=== PATIENT | female | born 1955 | race Caucasian/White ===

== ENCOUNTER 2016-07-10 07:50 | Emergency (ER) | payer BC ==
[2016-07-10 08:16] VITALS: BP 121/60
--- NOTE | 2016-07-10 08:24 | UC ---
Skin Complaint HPI - HPI Summary HPI Summary: tick removed from left side of neck this AM may have been on for 1 1/2 days - History of Current Complaint Chief Complaint: UCSkin Stated Complaint: TICK BITE Hx Obtained From: Patient Hx Last Menstrual Period: 10 yrs Skin Exposure Onset/Duration: Days Ago Timing: Constant Onset Severity: Mild Current Severity: Mild Pain Intensity: 2 Pain Scale Used: 0-10 Numeric Aggravating: Touch Alleviating: Nothing Associated Signs & Symptoms: Positive: Tenderness Related History: Insect Bite/Sting - Allergy/Home Medications Allergies/Adverse Reactions: Allergies Allergy/AdvReac Type Severity Reaction Status Date / Time No Known Allergies Allergy Verified 07/10/16 08:16 Review of Systems Constitutional: Negative Skin: Negative Eyes: Negative ENT: Negative Respiratory: Negative Cardiovascular: Negative Gastrointestinal: Negative Genitourinary: Negative Motor: Negative Neurovascular: Negative Musculoskeletal: Negative Neurological: Negative Psychological: Negative All Other Systems Reviewed And Are Negative: Yes PMH/Surg Hx/FS Hx/Imm Hx Previously Healthy: Yes Endocrine History Of: Denies: Diabetes, Thyroid Disease Cardiovascular History Of: Denies: Cardiac Disorders, Hypertension, Pacemaker/ICD Respiratory History Of: Denies: COPD, Asthma GI/ History Of: Denies: Ulcer - Surgical History Surgical History: Yes Surgery Procedure, Year, and Place: 3 c-sections. left thumb surgery/re- attachment 40 years ago - Family History Known Family History: Positive: Hypertension, Diabetes - Social History Alcohol Use: Rare Substance Use Type: None Smoking Status (MU): Light Every Day Tobacco Smoker Type: Cigarettes Amount Used/How Often: 4-6 CIGS PER DAY Length of Time of Smoking/Using Tobacco: 30 YRS Have You Smoked in the Last Year: Yes Physical Exam Triage Information Reviewed: Yes Appearance: Well-Appearing, No Pain Distress, Well-Nourished Vital Signs: Initial Vital Signs Temp 98.4 F 07/10/16 08:09 Pulse 77 07/10/16 08:09 Resp 20 07/10/16 08:09 BP 121/60 07/10/16 08:09 Vital Signs Reviewed: Yes Eyes: Positive: Conjunctiva Clear ENT: Positive: Hearing grossly normal, TMs normal. Negative: Nasal congestion, Nasal drainage, Trismus, Muffled/hoarse voice Neck: Positive: Supple, Nontender, No Lymphadenopathy Respiratory: Positive: Lungs clear, Normal breath sounds, No respiratory distress Cardiovascular: Positive: RRR, No Murmur Musculoskeletal: Positive: ROM Intact, No Edema Neurological: Positive: Alert Psychological Exam: Normal Skin Exam: Other - mild erthyema at tick bite site/ mandibular mouth parts removed with splinter forceps Course/Dx - Diagnoses Provider Diagnoses: tick bite. lyme disease prophylaxis Discharge - Discharge Plan Condition: Stable Disposition: HOME Prescriptions: DOXYcycline CAP(*) [DOXYcycline 100MG CAP(*)] 100 mg PO BID #2 cap Patient Education Materials: Tick Bite (ED) Referrals: Franco Sen DO [Primary Care Provider] - If Needed Additional Instructions: call for any questions return for any problems take two doxycylcine with food this am
== END 2016-07-10 08:56 | disposition home or self-care (01) ==
LOC: UCCORT 07:50
DX: S10.96XA Insect bite of unspecified part of neck, initial encounter (principal); W57.XXXA Bitten or stung by nonvenomous insect and other nonvenomous arthropods, initial encounter
CPT/HCPCS: 99212; G0463

== ENCOUNTER 2017-01-06 15:52 | Emergency (ER) | payer BC ==
--- NOTE | 2017-01-06 16:55 | UC ---
Ear Complaint HPI - HPI Summary HPI Summary: 61 y/o female presents to the urgent care c/o RT ear pain and plugged ear for the past 2 days. Pt reports nasal congestion, mild NAVA and sinus pain with clear nasal discharge for 1 week. Ear pain is mild 2/10 mostly pressure. Pt denies fever, SOB, chest pain, N/V/D, dizziness. - History of Current Complaint Chief Complaint: UCEar Stated Complaint: RT EAT ACHE Time Seen by Provider: 01/06/17 16:53 Hx Obtained From: Patient Hx Last Menstrual Period: 10 yrs ?: No Onset/Duration: Gradual Onset, Lasting Days - 2 days, Still Present Severity Initially: Mild Severity Currently: Mild Pain Intensity: 2 Pain Scale Used: 0-10 Numeric Aggravating Factors: Other - nasal congestion Alleviating Factors: OTC Meds Associated Signs/Symptoms: Positive: URI Symptoms Related History: Seasonal Allergies - Allergies/Home Medications Allergies/Adverse Reactions: Allergies Allergy/AdvReac Type Severity Reaction Status Date / Time No Known Allergies Allergy Verified 01/06/17 16:53 PMH/Surg Hx/FS Hx/Imm Hx Previously Healthy: Yes Endocrine History: Dyslipidemia Cardiovascular History: Hypertension - Surgical History Surgical History: Yes Surgery Procedure, Year, and Place: 3 c-sections. left thumb surgery/re- attachment 40 years ago - Family History Known Family History: Positive: Cardiac Disease, Hypertension, Diabetes - Social History Occupation: Employed Full-time Lives: With Family Alcohol Use: Rare Substance Use Type: None Smoking Status (MU): Light Every Day Tobacco Smoker Type: Cigarettes Amount Used/How Often: 4-6 CIGS PER DAY Length of Time of Smoking/Using Tobacco: 30 YRS Have You Smoked in the Last Year: Yes Review of Systems Constitutional: Negative Skin: Negative Eyes: Negative ENT: Ear Ache - RT pressure, Nasal Discharge, Sinus Congestion, Sinus Pain/ Tenderness - mild Respiratory: Negative Cardiovascular: Negative Gastrointestinal: Negative Genitourinary: Negative Motor: Negative Neurovascular: Negative Musculoskeletal: Negative Neurological: Negative Psychological: Negative Is Patient Immunocompromised?: No All Other Systems Reviewed And Are Negative: Yes Physical Exam Triage Information Reviewed: Yes - Additional Comments Vitals: reviewed General: Well developed, well-nourished female patient with NAD. Head and face: Normocephalic and atraumatic, Positive tenderness over the frontal and maxillary sinuses.. Eyes: PERRLA, EOMI x 2. Normal conjunctiva. No eye discharge. ENT: B/L external ear canals with mild cerumen and TM with normal limits. positive light reflex Nose: with clear nasal discharge and erythematous mucosa. Pharynx with mild erythema, no exudate. Neck: Supple, no JVD, no carotid bruits and no lymphadenopathy. Lungs: clear, no rales, no rhonchi, no wheezes. CVS: RRR, S1 and S2 present no murmurs or gallops appreciated. Abdomen: soft nontender with positive bowel sounds. Extremities: no edema noted. Neuro: WNL. Skin: warm and dry Ear Complaint Course/Dx - Course Course Of Treatment: 61 y/o female presents to the urgent care c/o RT ear pain and plugged ear for the past 2 days. Pt reports nasal congestion, mild NAVA and sinus pain with clear nasal discharge for 1 week. Ear pain is mild 2/10 mostly pressure. Pt denies fever, SOB, chest pain, N/V/D, dizziness. Hx obtained. Pt with allergic sinusitis on examination. Pt Rx Claritin PO, flonase nasal spray, advised to increase fluid intake, rest and eat well. Take Tylenol PO for sinus pain or headache. Debrox otic drops to clear ear canals. Pt explained D/ C instructions. Pt understood and agreed with plan of care. - Differential Dx/Diagnosis Differential Diagnosis/HQI/PQRI: Barotrauma, Cerumen Impaction, Otitis Externa, Otitis Media, Perforated TM, Pharyngitis, URI, Other - sinusitis Provider Diagnoses: 1- Acute rhinosinusitis Discharge - Discharge Plan Condition: Stable Disposition: HOME Prescriptions: Carbamide Peroxide 6.5% OTIC* [DEBROX 6.5% Otic*] 5 drop BOTH EARS BID #1 bottle Fluticasone NASAL SPRAY 50MCG* [Flonase NASAL SPRAY 50MCG*] 2 spray BOTH NARES DAILY #1 btl Loratadine & Pseudoephedrine [Claritin-D 12 Hour] 1 tab PO BID #30 tab Patient Education Materials: Rhinosinusitis (ED) Referrals: Franco Sen DO [Primary Care Provider] - If Needed Additional Instructions: 1-Use Flonase as directed to help drain fluid. Also buy saline drops to clear sinuses 2-Take Claritin PO to alleviates sinus congestion. Use the Debrox otic drops as directed to clear external ear canal 4-Return to the clinic or PCP if symptoms do not improve for further management and treatment
[2017-01-06 16:56] VITALS: BP 119/54
== END 2017-01-06 17:23 | disposition home or self-care (01) ==
LOC: UCCORT 15:52
DX: J01.90 Acute sinusitis, unspecified (principal); E78.5 Hyperlipidemia, unspecified; I10 Essential (primary) hypertension; F17.210 Nicotine dependence, cigarettes, uncomplicated
CPT/HCPCS: 99212; G0463